=== PATIENT | female | born 1995 | race Hispanic/Latino ===

== ENCOUNTER 2017-11-05 08:11 | Outpatient (CLI) | payer OTHER ==
--- NOTE | 2017-11-05 09:01 | XRay Report ---
ROUTINE CHEST, TWO VIEWS: HISTORY: Palpitations, cardiac murmur, shortness of breath. There is mild hyperinflation versus good inspiration. The lungs are clear otherwise. The trachea, heart, mediastinal contour, and bony thorax are unremarkable. IMPRESSION: Unremarkable chest x-ray.
--- NOTE | 2017-11-06 11:02 | Treadmill Report ---
REASON FOR STUDY: Palpitations. EXERCISE PROTOCOL: The patient exercised for 11 minutes of Thang protocol, reaching stage 4 and achieving 12 mets. Peak heart rate was 193 beats per minute. Peak blood pressure was 160 systolic. There was no chest pain. The test was stopped for fatigue. Baseline ECG was sinus rhythm. With exercise, there were no ST changes of ischemia. No significant dysrhythmias were noted. ECHOCARDIOGRAM: Two-dimensional echocardiogram was performed in multiple views at baseline. Immediately following exercise, the echocardiogram views were repeated. At baseline, there was normal left ventricular chamber size and wall thickness. Left ventricular systolic function was at lower limits of normal with ejection fraction 50-55%. Following exercise, there was hyperdynamic left ventricular systolic function, with left ventricular ejection fraction increased to 60-65%. There was concentric thickening of all left ventricular chamber ramos visualized. There was no left ventricular dilatation following exercise. There were no regional wall motion abnormalities noted with exercise. CONCLUSION: 1. Very good exercise capacity. 2. No chest pain with exercise to [address] changes of ischemia. 4. No significant dysrhythmias. 5. No echocardiographic signs of ischemia following peak exercise. This is a normal exercise echocardiography study. JOB# [id number] CA/NTS
== END 2017-11-05 08:12 | disposition home or self-care (01) ==
LOC: ECHO 08:11
PROVIDERS: ATTEND Internal Medicine Cardiovascular Disease
DX: R01.1 Cardiac murmur, unspecified (principal); R00.2 Palpitations; R06.02 Shortness of breath
CPT/HCPCS: 71046; 93017; 93320; 93325; 93350